=== PATIENT | male | born 1990 | race Caucasian/White ===

== ENCOUNTER 2016-07-18 21:52 | Emergency (ER) | payer SELFPAY ==
[~2016-07-18] VITALS: Ht 175.3 cm; Wt 84.1 kg
[~2016-07-18 21:52] MED LIST: BENADRYL25 MG PO; CONCERTA36 MG PO; DAZIDOX20 MG PO; DOXYCYCLINE 10100 MG PO; FLEXERIL 1010 MG/TAB PO; FLEXERIL10 MG PO; LORTAB 5/500 501 TAB PO; MOTRIN600 MG PO; MULTIPLE VITAMI1 CAP PO; NO HOME MEDICATIONS; NORCO 325 MG-51 TAB PO; OCUFLOX OPHTH DR5 ML OU; PEN-VEE K500 MG PO; PENICILLIN250 MG PO; PERCOCET 325 MG1 TA2 PO; PERCR 7.5 PO; PHENERGAN 25 TA25 MG PO; PREDNISONE20 MG PO
[2016-07-18 21:53] VITALS: BP 132/64; PULSE 115; TEMP 99
[2016-07-18] MEDS ORDERED: MOTRIN 800800 MG/TAB PO (22:38)
[2016-07-18] MEDS ORDERED: NORCO 325 MG-51 TAB PO (22:38)
== END 2016-07-18 22:56 | disposition home or self-care (01) ==
LOC: COL.ER 21:52
DX: S76.812A Strain of other specified muscles, fascia and tendons at thigh level, left thigh, initial encounter (principal); X50.3XXA Overexertion from repetitive movements, initial encounter; Y92.414 Local residential or business street as the place of occurrence of the external cause

== ENCOUNTER 2016-08-17 03:58 | Emergency (ER) | payer SELFPAY ==
[~2016-08-17] VITALS: Ht 175.3 cm; Wt 84.1 kg
[~2016-08-17 03:58] MED LIST changes: +MOTRIN 800800 MG/TAB PO
[2016-08-17 04:00] VITALS: BP 196/118; PULSE 113; TEMP 98
== END 2016-08-17 04:22 | disposition left against medical advice (07) ==
LOC: COL.ER 03:58
DX: F11.23 Opioid dependence with withdrawal (principal); F15.90 Other stimulant use, unspecified, uncomplicated

== ENCOUNTER 2017-01-06 19:31 | Emergency (ER) | payer SELFPAY ==
[2017-01-06 19:38] VITALS: TEMP 97.9
[2017-01-06 22:38] VITALS: BP 132/87; PULSE 102
== END 2017-01-06 22:30 | disposition home or self-care (01) ==
LOC: COL.ER 19:31
DX: T40.2X5A Adverse effect of other opioids, initial encounter (principal); R45.1 Restlessness and agitation

== ENCOUNTER 2017-01-11 13:15 | Emergency (ER) | payer SELFPAY ==
[~2017-01-11] VITALS: Ht 177.8 cm; Wt 77.3 kg
[2017-01-11 13:20] VITALS: BP 173/116; PULSE 98; TEMP 97.7
[2017-01-11] MEDS ORDERED: MOTRIN 800800 MG/TAB PO (15:32)
== END 2017-01-11 15:40 | disposition home or self-care (01) ==
LOC: COL.ER 13:15
DX: S20.221A Contusion of right back wall of thorax, initial encounter (principal); W19.XXXA Unspecified fall, initial encounter; G43.909 Migraine, unspecified, not intractable, without status migrainosus; F17.210 Nicotine dependence, cigarettes, uncomplicated; G89.29 Other chronic pain; F11.11 Opioid abuse, in remission; M54.9 Dorsalgia, unspecified
CPT/HCPCS: J1885

== ENCOUNTER 2017-06-17 18:11 | Emergency (ER) | payer SELFPAY ==
[~2017-06-17] VITALS: Ht 177.8 cm; Wt 77.3 kg
[~2017-06-17 18:11] MED LIST changes: +DAZIDOX10 MG PO
[2017-06-17 18:13] VITALS: BP 135/93; PULSE 118; TEMP 100.9
[2017-06-17 18:36] LABS: COLLECTION METHOD CLEAN CATCH
[2017-06-17 18:48] LABS: MUCOUS Present /lpf; PH 5 (5-8); SQUAMOUS EPITHELIAL None Seen /hpf; URINE APPEARANCE Clear; URINE BACTERIA Rare /hpf; URINE BILIRUBIN Negative (NEGATIVE); URINE BLOOD Negative (NEGATIVE); URINE COLOR Yellow; URINE GLUCOSE Negative (NEGATIVE); URINE KETONE Trace (NEGATIVE); URINE LEUKOCYTE ESTERASE Negative (NEGATIVE); URINE NITRATE Negative (NEGATIVE); URINE PROTEIN(semi-quant) Negative (NEGATIVE); URINE RBC 0-2 /hpf; URINE UROBILINOGEN Negative (NEGATIVE)
[2017-06-17 19:01] LABS: TRICYCLIC ANTIDEPRESS URINE POSITIVE
[2017-06-17 19:02] LABS: BASO % 0.3 % (0.0-2.0); EOS % 0.1 % (0-4.0); GRAN # 8.6 (1.4-6.5); GRAN % 82.4 % (42.2-75.2); LYMPH # 0.9 (1.2-3.4); LYMPH % 8.4 % (20.0-51.0); MEAN CELL VOLUME 90 fl (80.0-100.0); MEAN CORPUSCULAR HEMOGLOBIN 30 pg (27.0-31.0); MEAN CORPUSCULAR HGB CONC 33 g/dl (33.0-37.0); MEAN PLATELET VOLUME 8.3 fl (7.4-10.4); MONO # 0.9 (0.1-0.6); MONO % 8.4 % (1.7-9.3); PLATELET COUNT 272 K/mm3 (130-400); RED BLOOD COUNT 4.06 M/mm3 (4.20-5.60); REDCELL DISTRIBUTION WIDTH-CV 13.3 % (11.5-14.5)
[2017-06-17 19:05] LABS: HEMATOCRIT 36.4 % (42.0-52.0)
[2017-06-17 19:09] LABS: INR 1.1 (0.8-3.0); PROTHROMBIN TIME 12.4 SECONDS (9.7-12.8)
[2017-06-17 19:13] LABS: ALANINE AMINOTRANSFERASE 140 U/L (21-72); ALKALINE PHOSPHATASE 81 U/L (50-136); ANION GAP 9 mmol/L (7-16); AST,SGOT 134 U/L (15-37); BILIRUBIN,TOTAL 0.9 mg/dL (0.0-1.0); BLOOD UREA NITROGEN 19 mg/dL (9-20); C-REACTIVE PROTEIN 3.1 mg/dL (0.0-0.9); CALCIUM 8.7 mg/dL (8.4-10.2); CARBON DIOXIDE 25 mmol/L (22-30); CHLORIDE 104 mmol/L (98-107); CREATININE, serum 0.92 mg/dL (0.66-1.25); GLUCOSE 85 mg/dL (74-106); PHOSPHOROUS 2.8 mg/dL (2.5-4.5); POTASSIUM 4.5 mmol/L (3.4-5.0); SODIUM 139 mmol/L (137-145); TOTAL PROTEIN 7.4 gm/dL (6.4-8.2)
[2017-06-17 19:14] LABS: ACETAMINOPHEN < 10 ug/mL (10-30); ALCOHOL(ethanol),MEDICAL < 10 mg/dL; SALICYLATE < 1.0 mg/dL
[2017-06-17 19:18] LABS: CREATINE KINASE 1992 U/L (55-170)
[2017-06-17 19:30] LABS: ERYTHROCYTE SEDIMENTATION RATE 14 mm/hr (0-15)
[2017-06-17 21:51] LABS: ARTERIAL BLD GAS O2 SATURATION 91.9 % (92-100); ARTERIAL BLD GAS TCO2 CT 25.4; ARTERIAL BLOOD GAS HCO3 23.7 meq/L (22-26); ARTERIAL BLOOD GAS PO2 67.1 mmHg (80-100); ARTERIAL BLOOD GAS pH 7.25 (7.35-7.45)
== END 2017-06-18 01:15 | disposition short-term general hospital (02) ==
LOC: COL.ER → EDBD 18:11 → COL.ER 18:11
PROVIDERS: Emergency Medicine
DX: T40.3X1A Poisoning by methadone, accidental (unintentional), initial encounter (principal); R41.82 Altered mental status, unspecified; M62.82 Rhabdomyolysis; I10 Essential (primary) hypertension; J45.909 Unspecified asthma, uncomplicated; Z98.890 Other specified postprocedural states; Z79.82 Long term (current) use of aspirin; Z86.19 Personal history of other infectious and parasitic diseases
CPT/HCPCS: J2060; J2250; J7030

== ENCOUNTER 2017-06-26 03:34 | Emergency (ER) | payer SELFPAY ==
[~2017-06-26] VITALS: Ht 177.8 cm; Wt 75.0 kg
[2017-06-26 03:39] VITALS: TEMP 98.7
[2017-06-26 04:59] LABS: BASO % 0.2 % (0.0-2.0); EOS # 0.2 (0.0-0.7); GRAN # 7.5 (1.4-6.5); GRAN % 61.8 % (42.2-75.2); HEMATOCRIT 49.6 % (42.0-52.0); HEMOGLOBIN 16.7 g/dl (13.5-18.0); MEAN CELL VOLUME 88 fl (80.0-100.0); MEAN CORPUSCULAR HEMOGLOBIN 30 pg (27.0-31.0); MEAN CORPUSCULAR HGB CONC 34 g/dl (33.0-37.0); MONO # 1.1 (0.1-0.6); MONO % 9.4 % (1.7-9.3); PLATELET COUNT 373 K/mm3 (130-400); RED BLOOD COUNT 5.64 M/mm3 (4.20-5.60); REDCELL DISTRIBUTION WIDTH-CV 13.4 % (11.5-14.5)
[2017-06-26 05:12] LABS: ALANINE AMINOTRANSFERASE 107 U/L (21-72); ALBUMIN 4.5 gm/dL (3.5-5.0); ALKALINE PHOSPHATASE 60 U/L (50-136); ANION GAP 13 mmol/L (7-16); AST,SGOT 79 U/L (15-37); BILIRUBIN,TOTAL 1.1 mg/dL (0.0-1.0); BLOOD UREA NITROGEN 20 mg/dL (9-20); CALCIUM 10.1 mg/dL (8.4-10.2); CARBON DIOXIDE 25 mmol/L (22-30); CHLORIDE 105 mmol/L (98-107); CREATININE, serum 0.91 mg/dL (0.66-1.25); GLUCOSE 103 mg/dL (74-106); LIPASE 464 U/L (23-300); POTASSIUM 5.1 mmol/L (3.4-5.0); SODIUM 143 mmol/L (137-145); TOTAL PROTEIN 8.7 gm/dL (6.4-8.2)
[2017-06-26 05:17] LABS: C-REACTIVE PROTEIN < 0.5 mg/dL (0.0-0.9)
[2017-06-26 05:20] LABS: TROPONIN-I < 0.012 ng/mL (0.000-0.034)
[2017-06-26 05:45] LABS: COLLECTION METHOD CLEAN CATCH
[2017-06-26 05:56] LABS: MUCOUS Present /lpf; PH 5 (5-8); SQUAMOUS EPITHELIAL None Seen /hpf; URINE APPEARANCE Hazy; URINE BACTERIA None Seen /hpf; URINE BILIRUBIN Negative (NEGATIVE); URINE BLOOD Negative (NEGATIVE); URINE COLOR Yellow; URINE GLUCOSE Negative (NEGATIVE); URINE KETONE Negative (NEGATIVE); URINE LEUKOCYTE ESTERASE Negative (NEGATIVE); URINE NITRATE Negative (NEGATIVE); URINE PROTEIN(semi-quant) Negative (NEGATIVE); URINE RBC 0-2 /hpf; URINE UROBILINOGEN Negative (NEGATIVE)
[2017-06-26 06:00] LABS: TRICYCLIC ANTIDEPRESS URINE NEGATIVE
[2017-06-26] MEDS ORDERED: CARAFATE 1GM1 G PO (07:01)
[2017-06-26] MEDS ORDERED: PRIL40 PO (07:01)
[2017-06-26 07:07] VITALS: BP 167/103; PULSE 111
== END 2017-06-26 07:14 | disposition home or self-care (01) ==
LOC: COL.ER 03:34
PROVIDERS: Emergency Medicine
DX: K29.70 Gastritis, unspecified, without bleeding (principal); M21.371 Foot drop, right foot; J45.909 Unspecified asthma, uncomplicated; B19.9 Unspecified viral hepatitis without hepatic coma; F15.90 Other stimulant use, unspecified, uncomplicated
CPT/HCPCS: C9113; J7030

== ENCOUNTER 2017-06-27 06:03 | Emergency (ER) | payer SELFPAY ==
[~2017-06-27] VITALS: Ht 177.8 cm; Wt 72.7 kg
[~2017-06-27 06:03] MED LIST changes: +CARAFATE 1GM1 G PO; +PRIL40 PO
[2017-06-27 06:04] VITALS: TEMP 98.8
[2017-06-27 07:33] VITALS: BP 153/86; PULSE 64
== END 2017-06-27 07:32 | disposition home or self-care (01) ==
LOC: COL.ER 06:03
DX: K29.70 Gastritis, unspecified, without bleeding (principal); K14.6 Glossodynia; M21.371 Foot drop, right foot; F17.210 Nicotine dependence, cigarettes, uncomplicated; Z87.19 Personal history of other diseases of the digestive system
CPT/HCPCS: C9113; J7030

== ENCOUNTER 2017-09-02 16:16 | Emergency (ER) | payer OTHER ==
[~2017-09-02] VITALS: Ht 177.8 cm; Wt 85.0 kg
[2017-09-02 16:26] VITALS: BP 173/102; PULSE 104; TEMP 98.2
== END 2017-09-02 17:42 | disposition left against medical advice (07) ==
LOC: COL.ER 16:16
DX: F41.9 Anxiety disorder, unspecified (principal)

== ENCOUNTER 2017-10-08 15:47 | Emergency (ER) | payer OTHER ==
[~2017-10-08] VITALS: Ht 177.8 cm; Wt 75.0 kg
[2017-10-08 15:51] VITALS: TEMP 99
[2017-10-08 16:27] LABS: BASO # 0.1 (0.0-0.2); BASO % 0.8 % (0.0-2.0); EOS # 0.1 (0.0-0.7); EOS % 1.5 % (0-4.0); GRAN # 4.8 (1.4-6.5); HEMATOCRIT 50.8 % (42.0-52.0); HEMOGLOBIN 16.6 g/dl (13.5-18.0); LYMPH # 1.9 (1.2-3.4); LYMPH % 26.3 % (20.0-51.0); MEAN CELL VOLUME 87 fl (80.0-100.0); MEAN CORPUSCULAR HEMOGLOBIN 29 pg (27.0-31.0); MEAN CORPUSCULAR HGB CONC 33 g/dl (33.0-37.0); MEAN PLATELET VOLUME 8.4 fl (7.4-10.4); MONO # 0.4 (0.1-0.6); MONO % 5.7 % (1.7-9.3); PLATELET COUNT 408 K/mm3 (130-400); RED BLOOD COUNT 5.83 M/mm3 (4.20-5.60); REDCELL DISTRIBUTION WIDTH-CV 13.3 % (11.5-14.5)
[2017-10-08 16:35] LABS: ALANINE AMINOTRANSFERASE 86 U/L (21-72); ALBUMIN 4.8 gm/dL (3.5-5.0); ALKALINE PHOSPHATASE 71 U/L (50-136); ANION GAP 14 mmol/L (7-16); AST,SGOT 51 U/L (15-37); BILIRUBIN,TOTAL 0.6 mg/dL (0.0-1.0); BLOOD UREA NITROGEN 13 mg/dL (9-20); CALCIUM 10.4 mg/dL (8.4-10.2); CARBON DIOXIDE 28 mmol/L (22-30); CHLORIDE 99 mmol/L (98-107); CREATININE, serum 0.95 mg/dL (0.66-1.25); GLUCOSE 110 mg/dL (74-106); POTASSIUM 3.9 mmol/L (3.4-5.0); SODIUM 141 mmol/L (137-145); TOTAL PROTEIN 9.2 gm/dL (6.4-8.2)
[2017-10-08 16:37] LABS: ACETAMINOPHEN < 10 ug/mL (10-30); ALCOHOL(ethanol),MEDICAL < 10 mg/dL; SALICYLATE < 1.0 mg/dL
[2017-10-08 17:05] LABS: TSH w REFLEX 0.901 uIU/mL (0.465-4.680)
[2017-10-08] MEDS ORDERED: KLONOPIN 1MG1 MG PO (17:56)
[2017-10-08 18:20] VITALS: BP 142/102; PULSE 102
== END 2017-10-08 18:20 | disposition home or self-care (01) ==
LOC: COL.ER 15:47
PROVIDERS: Emergency Medicine
DX: F23 Brief psychotic disorder (principal); F41.9 Anxiety disorder, unspecified; F19.11 Other psychoactive substance abuse, in remission; F17.210 Nicotine dependence, cigarettes, uncomplicated; F12.90 Cannabis use, unspecified, uncomplicated

== ENCOUNTER 2018-01-03 07:39 | Emergency (ER) | payer SELFPAY ==
[~2018-01-03] VITALS: Ht 177.8 cm; Wt 79.5 kg
[~2018-01-03 07:39] MED LIST changes: +KLONOPIN 1MG1 MG PO
[2018-01-03 07:44] VITALS: BP 177/88; PULSE 120; TEMP 99.1
== END 2018-01-03 07:52 | disposition left against medical advice (07) ==
LOC: COL.ER 07:39
DX: F41.9 Anxiety disorder, unspecified (principal); F32.9 Major depressive disorder, single episode, unspecified

== ENCOUNTER 2018-01-05 19:29 | Emergency (ER) | payer SELFPAY ==
[~2018-01-05] VITALS: Ht 177.8 cm; Wt 79.5 kg
[2018-01-05 19:36] VITALS: BP 168/86; PULSE 118; TEMP 100.1
[2018-01-05 20:37] LABS: BASO % 0.5 % (0.0-2.0); EOS # 0.3 (0.0-0.7); EOS % 3.9 % (0-4.0); GRAN # 4.2 (1.4-6.5); GRAN % 63.9 % (42.2-75.2); HEMATOCRIT 32.4 % (42.0-52.0); HEMOGLOBIN 11.2 g/dl (13.5-18.0); LYMPH # 1.3 (1.2-3.4); LYMPH % 19.5 % (20.0-51.0); MEAN CELL VOLUME 86 fl (80.0-100.0); MEAN CORPUSCULAR HEMOGLOBIN 30 pg (27.0-31.0); MEAN CORPUSCULAR HGB CONC 35 g/dl (33.0-37.0); MEAN PLATELET VOLUME 8.8 fl (7.4-10.4); MONO # 0.8 (0.1-0.6); PLATELET COUNT 195 K/mm3 (130-400); RED BLOOD COUNT 3.78 M/mm3 (4.20-5.60); REDCELL DISTRIBUTION WIDTH-CV 13.7 % (11.5-14.5)
[2018-01-05 20:44] LABS: ALBUMIN 3.8 gm/dL (3.5-5.0); BILIRUBIN,TOTAL 0.4 mg/dL (0.0-1.0); C-REACTIVE PROTEIN 5.6 mg/dL (0.0-0.9); CALCIUM 8.6 mg/dL (8.4-10.2); CREATININE, serum 0.9 mg/dL (0.66-1.25); POTASSIUM 3.7 mmol/L (3.4-5.0); TOTAL PROTEIN 6.8 gm/dL (6.4-8.2)
[2018-01-05 20:57] LABS: ERYTHROCYTE SEDIMENTATION RATE 27 mm/hr (0-15)
[2018-01-05] MEDS ORDERED: CLEOCIN HCL300 MG PO (22:29)
== END 2018-01-05 22:30 | disposition home or self-care (01) ==
LOC: COL.ER 19:29
PROVIDERS: Emergency Medicine
DX: L03.116 Cellulitis of left lower limb (principal); R21 Rash and other nonspecific skin eruption; F17.210 Nicotine dependence, cigarettes, uncomplicated; F12.90 Cannabis use, unspecified, uncomplicated
CPT/HCPCS: J7030

== ENCOUNTER 2019-01-31 19:41 | Emergency (ER) | payer SELFPAY ==
[~2019-01-31] VITALS: Ht 177.8 cm; Wt 84.1 kg
[~2019-01-31 19:41] MED LIST changes: +CLEOCIN HCL300 MG PO; +DOLOPHINE HCL5 MG PO
[2019-01-31 19:49] VITALS: TEMP 98.5
[2019-01-31] MEDS ORDERED: ULTRAM 50MG TAB50 MG PO (22:09)
[2019-01-31] MEDS ORDERED: AMOXICILLIN 50500 MG PO (22:09)
[2019-01-31 22:28] VITALS: BP 194/100; PULSE 70
== END 2019-01-31 22:29 | disposition home or self-care (01) ==
LOC: COL.ER 19:41
DX: K02.9 Dental caries, unspecified (principal); I10 Essential (primary) hypertension; F17.210 Nicotine dependence, cigarettes, uncomplicated

== ENCOUNTER 2019-03-20 12:21 | Emergency (ER) | payer SELFPAY ==
[~2019-03-20] VITALS: Ht 175.3 cm; Wt 79.5 kg
[~2019-03-20 12:21] MED LIST changes: +AMOXICILLIN 50500 MG PO; +ULTRAM 50MG TAB50 MG PO
[2019-03-20 12:48] VITALS: BP 131/93; PULSE 78; TEMP 98.3
[2019-03-20] MEDS ORDERED: LIDODERM 5% PATC1 EA TP (15:40)
[2019-03-20] MEDS ORDERED: MEDROL 4MG DOSPA4 MG PO (15:40)
== END 2019-03-20 16:23 | disposition home or self-care (01) ==
LOC: COL.ER 12:21
DX: M54.17 Radiculopathy, lumbosacral region (principal); F17.210 Nicotine dependence, cigarettes, uncomplicated
CPT/HCPCS: J1885

== ENCOUNTER 2019-03-20 20:42 | Emergency (ER) | payer SELFPAY ==
[~2019-03-20] VITALS: Ht 177.8 cm; Wt 81.8 kg
[~2019-03-20 20:42] MED LIST changes: +LIDODERM 5% PATC1 EA TP; +MEDROL 4MG DOSPA4 MG PO
[2019-03-20 21:02] VITALS: BP 136/86; PULSE 109; TEMP 99.2
== END 2019-03-20 23:20 | disposition home or self-care (01) ==
LOC: COL.ER 20:42
DX: M54.17 Radiculopathy, lumbosacral region (principal); F17.210 Nicotine dependence, cigarettes, uncomplicated
CPT/HCPCS: J1100; J1885; J2360

== ENCOUNTER 2019-04-25 19:17 | Emergency (ER) | payer SELFPAY ==
[~2019-04-25] VITALS: Ht 177.8 cm; Wt 79.5 kg
[2019-04-25 19:20] VITALS: TEMP 98.5
[2019-04-25] MEDS ORDERED: EXCEDRIN1 TAB PO (19:26)
[2019-04-25 21:20] VITALS: BP 156/106; PULSE 97
== END 2019-04-25 21:49 | disposition home or self-care (01) ==
LOC: COL.ER 19:17
DX: G43.909 Migraine, unspecified, not intractable, without status migrainosus (principal); I10 Essential (primary) hypertension
CPT/HCPCS: J0780; J1100; J1200; J1885; J2060

== ENCOUNTER 2019-08-28 15:30 | Emergency (ER) | payer SELFPAY ==
[~2019-08-28] VITALS: Ht 177.8 cm; Wt 84.1 kg
[~2019-08-28 15:30] MED LIST changes: +EXCEDRIN1 TAB PO
[2019-08-28 15:38] VITALS: TEMP 96.4
[2019-08-28 16:11] LABS: COLLECTION METHOD CLEAN CATCH
[2019-08-28 16:32] LABS: MUCOUS Present /lpf; PH 5 (5-8); SQUAMOUS EPITHELIAL None Seen /hpf; URINE APPEARANCE Clear; URINE BACTERIA None Seen /hpf; URINE BILIRUBIN Negative (NEGATIVE); URINE BLOOD Negative (NEGATIVE); URINE COLOR Yellow; URINE GLUCOSE Negative (NEGATIVE); URINE KETONE Negative (NEGATIVE); URINE LEUKOCYTE ESTERASE Negative (NEGATIVE); URINE NITRATE Negative (NEGATIVE); URINE PROTEIN(semi-quant) Negative (NEGATIVE)
[2019-08-28] MEDS ORDERED: NAPROXEN 3375 MG/TAB PO (16:40)
[2019-08-28 16:56] VITALS: BP 137/83; PULSE 98
== END 2019-08-28 16:57 | disposition home or self-care (01) ==
LOC: COL.ER 15:30
PROVIDERS: Emergency Medicine
DX: N50.811 Right testicular pain (principal); N50.812 Left testicular pain; F17.210 Nicotine dependence, cigarettes, uncomplicated; Z11.3 Encounter for screening for infections with a predominantly sexual mode of transmission; Z79.82 Long term (current) use of aspirin
CPT/HCPCS: J0696; J1885

== ENCOUNTER 2019-10-10 22:23 | Emergency (ER) | payer SELFPAY ==
[~2019-10-10] VITALS: Ht 177.8 cm; Wt 77.3 kg
[~2019-10-10 22:23] MED LIST changes: +NAPROXEN 3375 MG/TAB PO
[2019-10-10 22:31] VITALS: BP 137/93; TEMP 98.4
[2019-10-10] MEDS ORDERED: CEPHALEXIN500 M1 PO (23:05)
[2019-10-10 23:56] VITALS: PULSE 110
== END 2019-10-11 00:02 | disposition home or self-care (01) ==
LOC: COL.ER 22:23
DX: S31.010A Laceration without foreign body of lower back and pelvis without penetration into retroperitoneum, initial encounter (principal); S41.111A Laceration without foreign body of right upper arm, initial encounter; Z23 Encounter for immunization; X99.1XXA Assault by knife, initial encounter

== ENCOUNTER → 2019-10-16 | Outpatient (CLI) | payer SELFPAY ==
[~2019-10-16] VITALS: Ht 177.8 cm; Wt 79.5 kg
[~2019-10-16] MED LIST changes: +CEPHALEXIN500 M1 PO
[2019-10-16 15:51] VITALS: BP 162/84; PULSE 88; TEMP 98.3
== END ==
LOC: COL.ER 15:33
DX: Z48.02 Encounter for removal of sutures (principal)

== ENCOUNTER → 2019-10-21 | Outpatient (CLI) | payer SELFPAY ==
[2019-10-21 16:39] VITALS: BP 160/90; PULSE 93; TEMP 97.9
== END ==
LOC: COL.ER 16:23
DX: Z48.02 Encounter for removal of sutures (principal)

== ENCOUNTER 2019-12-26 16:12 | Emergency (ER) | payer SELFPAY ==
[~2019-12-26] VITALS: Ht 177.8 cm; Wt 81.8 kg
[2019-12-26 16:18] VITALS: BP 155/99; TEMP 97.1
[2019-12-26 17:50] VITALS: PULSE 84
== END 2019-12-26 17:49 | disposition home or self-care (01) ==
LOC: COL.ER 16:12
DX: S62.622A Displaced fracture of middle phalanx of right middle finger, initial encounter for closed fracture (principal); W22.8XXA Striking against or struck by other objects, initial encounter; Y92.009 Unspecified place in unspecified non-institutional (private) residence as the place of occurrence of the external cause

== ENCOUNTER 2020-04-27 19:15 | Emergency (ER) | payer SELFPAY ==
[~2020-04-27] VITALS: Ht 185.4 cm; Wt 77.3 kg
[2020-04-27 20:15] VITALS: BP 154/126; PULSE 108
[2020-04-27 20:34] LABS: BASO % 0.8 % (0.0-2.0); EOS # 0.1 (0.0-0.7); EOS % 2.5 % (0-4.0); GRAN # 2.2 (1.4-6.5); GRAN % 45.4 % (42.2-75.2); HEMATOCRIT 48.4 % (42.0-52.0); HEMOGLOBIN 16.5 g/dl (13.5-18.0); LYMPH # 1.9 (1.2-3.4); LYMPH % 39.4 % (20.0-51.0); MEAN CELL VOLUME 91 fl (80.0-100.0); MEAN CORPUSCULAR HEMOGLOBIN 31 pg (27.0-31.0); MEAN CORPUSCULAR HGB CONC 34 g/dl (33.0-37.0); MEAN PLATELET VOLUME 8.8 fl (7.4-10.4); MONO # 0.6 (0.1-0.6); MONO % 11.7 % (1.7-9.3); PLATELET COUNT 279 K/mm3 (130-400); RED BLOOD COUNT 5.32 M/mm3 (4.20-5.60); REDCELL DISTRIBUTION WIDTH-CV 12.1 % (11.5-14.5)
[2020-04-27 20:43] LABS: ALANINE AMINOTRANSFERASE 51 U/L (4-49); ALBUMIN 4.8 gm/dL (3.5-5.0); ALKALINE PHOSPHATASE 56 U/L (50-136); ANION GAP 10 mmol/L (7-16); AST,SGOT 47 U/L (15-37); BILIRUBIN,TOTAL 0.5 mg/dL (0.0-1.0); BLOOD UREA NITROGEN 22 mg/dL (9-20); CALCIUM 9.5 mg/dL (8.4-10.2); CARBON DIOXIDE 25 mmol/L (22-30); CHLORIDE 102 mmol/L (98-107); CREATININE, serum 1.03 (0.66-1.25); GLUCOSE 99 mg/dL (74-106); POTASSIUM 4.1 mmol/L (3.4-5.0); SODIUM 138 mmol/L (137-145); TOTAL PROTEIN 8.4 gm/dL (6.4-8.2)
[2020-04-27 20:44] LABS: ACETAMINOPHEN < 10 ug/mL (10-30); ALCOHOL(ethanol),MEDICAL < 10 mg/dL; SALICYLATE < 1.0 mg/dL
== END 2020-04-27 22:10 | disposition left against medical advice (07) ==
LOC: COL.ER 19:15
PROVIDERS: Physician Assistant
DX: F19.121 Other psychoactive substance abuse with intoxication delirium (principal); F17.210 Nicotine dependence, cigarettes, uncomplicated
CPT/HCPCS: J2250

== ENCOUNTER 2020-05-31 21:25 | Emergency (ER) | payer SELFPAY ==
[~2020-05-31] VITALS: Ht 177.8 cm; Wt 93.2 kg
[2020-05-31 21:40] VITALS: BP 177/95; PULSE 98; TEMP 98.5
[2020-05-31 23:04] LABS: BASO # 0.1 (0.0-0.2); BASO % 0.6 % (0.0-2.0); EOS # 0.1 (0.0-0.7); EOS % 0.7 % (0-4.0); GRAN # 6.2 (1.4-6.5); HEMATOCRIT 44.8 % (42.0-52.0); HEMOGLOBIN 15.1 g/dl (13.5-18.0); LYMPH # 1.6 (1.2-3.4); LYMPH % 18.3 % (20.0-51.0); MEAN CELL VOLUME 93 fl (80.0-100.0); MEAN CORPUSCULAR HEMOGLOBIN 31 pg (27.0-31.0); MEAN CORPUSCULAR HGB CONC 34 g/dl (33.0-37.0); MEAN PLATELET VOLUME 8.5 fl (7.4-10.4); MONO # 0.6 (0.1-0.6); MONO % 7.2 % (1.7-9.3); PLATELET COUNT 239 K/mm3 (130-400); RED BLOOD COUNT 4.81 M/mm3 (4.20-5.60); REDCELL DISTRIBUTION WIDTH-CV 12.3 % (11.5-14.5)
[2020-05-31 23:16] LABS: CALCIUM 9.6 mg/dL (8.4-10.2); CREATININE, serum 1.01 (0.66-1.25)
[2020-05-31 23:33] LABS: ERYTHROCYTE SEDIMENTATION RATE 2 mm/hr (0-15)
[2020-05-31] MEDS ORDERED: AMOXICILLIN 8751 TAB PO (23:50)
== END 2020-05-31 23:56 | disposition home or self-care (01) ==
LOC: COL.ER 21:25
PROVIDERS: Emergency Medicine
DX: S61.232A Puncture wound without foreign body of right middle finger without damage to nail, initial encounter (principal); R11.0 Nausea; F17.210 Nicotine dependence, cigarettes, uncomplicated; W54.0XXA Bitten by dog, initial encounter

== ENCOUNTER 2020-07-22 16:24 | Emergency (ER) | payer SELFPAY ==
[~2020-07-22] VITALS: Ht 180.3 cm; Wt 90.9 kg
[~2020-07-22 16:24] MED LIST changes: +AMOXICILLIN 8751 TAB PO
[2020-07-22 16:34] VITALS: TEMP 98
[2020-07-22 17:42] LABS: ALBUMIN 4.4 gm/dL (3.5-5.0); BILIRUBIN,TOTAL 0.3 mg/dL (0.0-1.0); CALCIUM 9.7 mg/dL (8.4-10.2); CREATININE, serum 0.81 (0.66-1.25); POTASSIUM 3.7 mmol/L (3.4-5.0); TOTAL PROTEIN 7.9 gm/dL (6.4-8.2)
[2020-07-22 17:49] LABS: BASO # 0.1 (0.0-0.2); BASO % 0.8 % (0.0-2.0); EOS # 0.1 (0.0-0.7); GRAN % 64.5 % (42.2-75.2); HEMATOCRIT 46.7 % (42.0-52.0); HEMOGLOBIN 15.9 g/dl (13.5-18.0); LYMPH % 25.5 % (20.0-51.0); MEAN CELL VOLUME 90 fl (80.0-100.0); MEAN CORPUSCULAR HEMOGLOBIN 31 pg (27.0-31.0); MEAN CORPUSCULAR HGB CONC 34 g/dl (33.0-37.0); MEAN PLATELET VOLUME 8.5 fl (7.4-10.4); MONO # 0.6 (0.1-0.6); MONO % 7.8 % (1.7-9.3); PLATELET COUNT 347 K/mm3 (130-400); REDCELL DISTRIBUTION WIDTH-CV 11.8 % (11.5-14.5)
[2020-07-22 18:24] LABS: COLLECTION METHOD CLEAN CATCH
[2020-07-22 18:33] LABS: PH 7 (5-8); SQUAMOUS EPITHELIAL None Seen /hpf; URINE APPEARANCE Cloudy; URINE BACTERIA Moderate /hpf; URINE BILIRUBIN Negative (NEGATIVE); URINE BLOOD Negative (NEGATIVE); URINE COLOR Yellow; URINE GLUCOSE Negative (NEGATIVE); URINE KETONE Negative (NEGATIVE); URINE LEUKOCYTE ESTERASE Negative (NEGATIVE); URINE NITRATE Negative (NEGATIVE); URINE PROTEIN(semi-quant) Negative (NEGATIVE); URINE RBC 0-2 /hpf; URINE UROBILINOGEN Negative (NEGATIVE)
[2020-07-22] MEDS ORDERED: PROTONIX 40MG T40 MG PO (19:27)
[2020-07-22 20:03] VITALS: BP 179/101; PULSE 95
== END 2020-07-22 20:05 | disposition home or self-care (01) ==
LOC: COL.ER 16:24
PROVIDERS: Physician Assistant
DX: K29.00 Acute gastritis without bleeding (principal); I10 Essential (primary) hypertension; F17.210 Nicotine dependence, cigarettes, uncomplicated
CPT/HCPCS: C9113; J2405; J7030

== ENCOUNTER 2021-01-11 00:55 | Emergency (ER) | payer SELFPAY ==
[~2021-01-11] VITALS: Ht 177.8 cm; Wt 93.2 kg
[~2021-01-11 00:55] MED LIST changes: +PROTONIX 40MG T40 MG PO
[2021-01-11 00:59] VITALS: BP 152/108; PULSE 119; TEMP 97.9
[2021-01-11] MEDS ORDERED: CEPHALEXIN500 M1 PO (02:13)
== END 2021-01-11 03:06 | disposition home or self-care (01) ==
LOC: COL.ER 00:55
DX: S61.212A Laceration without foreign body of right middle finger without damage to nail, initial encounter (principal); S61.214A Laceration without foreign body of right ring finger without damage to nail, initial encounter; S61.216A Laceration without foreign body of right little finger without damage to nail, initial encounter; Z23 Encounter for immunization; W22.8XXA Striking against or struck by other objects, initial encounter; Y92.89 Other specified places as the place of occurrence of the external cause

== ENCOUNTER → 2021-01-16 | Outpatient (CLI) | payer SELFPAY | LOC: COL.ER 21:23 | DX: Z48.02 Encounter for removal of sutures (principal) ==

== ENCOUNTER 2021-07-31 22:14 | Emergency (ER) | payer SELFPAY ==
[~2021-07-31] VITALS: Ht 177.8 cm; Wt 100.0 kg
[2021-07-31 22:34] VITALS: BP 172/121; PULSE 113; TEMP 98.1
== END 2021-07-31 23:15 | disposition left against medical advice (07) ==
LOC: COL.ER 22:14
DX: F29 Unspecified psychosis not due to a substance or known physiological condition (principal); R45.851 Suicidal ideations; F17.200 Nicotine dependence, unspecified, uncomplicated; Z28.310 Unvaccinated for COVID-19

== ENCOUNTER 2022-07-01 14:44 | Emergency (ER) | payer SELFPAY ==
[~2022-07-01] VITALS: Ht 180.3 cm; Wt 93.2 kg
[2022-07-01 14:46] VITALS: TEMP 98.5
[2022-07-01 15:31] LABS: BASO # 0.1 K/mm3 (0.0-0.2); BASO % 0.7 % (0.0-2.0); EOS # 0.2 K/mm3 (0.0-0.7); EOS % 1.8 % (0.0-4.0); GRAN # 5.6 K/mm3 (1.4-6.5); GRAN % 59.4 % (42.2-75.2); HEMATOCRIT 43.2 % (42.0-52.0); HEMOGLOBIN 15.4 g/dl (13.5-18.0); LYMPH # 2.9 K/mm3 (1.2-3.4); LYMPH % 30.1 % (20.0-51.0); MEAN CELL VOLUME 89 fl (80.0-100.0); MEAN CORPUSCULAR HEMOGLOBIN 32 pg (27-31); MEAN CORPUSCULAR HGB CONC 36 g/dl (33.0-37.0); MONO # 0.7 K/mm3 (0.1-0.6); MONO % 7.3 % (1.7-9.3); PLATELET COUNT 301 K/mm3 (130-400); RED BLOOD COUNT 4.88 M/mm3 (4.20-5.60); REDCELL DISTRIBUTION WIDTH-CV 12.3 % (11.5-14.5)
[2022-07-01 15:53] VITALS: BP 129/85; PULSE 122
== END 2022-07-01 15:56 | disposition left against medical advice (07) ==
LOC: COL.ER 14:44
PROVIDERS: Nurse Practitioner Family
DX: R41.82 Altered mental status, unspecified (principal); F17.200 Nicotine dependence, unspecified, uncomplicated; Z28.310 Unvaccinated for COVID-19
CPT/HCPCS: J7030